=== PATIENT | male | born 1945 | race Caucasian/White ===

== ENCOUNTER 2016-09-27 07:26 | Day surgery (SDC) | payer MEDICARE, BC ==
[~2016-09-27 07:26] MED LIST: Dextrose 5%-0.45% NaCl 1,000 ML IV SCH; Midazolam 1 MG/ML 2 ML SDV ONE; Sodium Chloride 0.9% 10 ML Syringe FLUSH PRN; fentaNYL 100 MCG/2 ML SDV ONE
[2016-09-27] MEDS ORDERED: fentaNYL 100 MCG/2 ML SDV IV ONE ×3 (08:11→17:02)
[2016-09-27] MEDS ORDERED: Midazolam 1 MG/ML 2 ML SDV IV ONE ×5 (08:12→17:02)
[2016-09-27 09:57] VITALS: BP 117/64
--- NOTE | 2016-09-27 09:59 | OR ---
DATE: 09/27/2016 PROCEDURE: Total colonoscopy, NBI, and cold snare polypectomy. INSTRUMENT USED: CF-H180AL Olympus video colonoscope. PREMEDICATIONS: Fentanyl 100 mcg intravenous, Versed 3 mg intravenous. Nasal O2 cannula. The procedure was done under pulse oximetry, BP recording, and computer systems auditor. INDICATION: Screening colonoscopic examination is done for detection of any polypoid lesions and removal, endoscopic hemostasis therapy if needed, had previous inadequate study due to the presence of a large amount of fecal material. DESCRIPTION OF PROCEDURE: Initial rectal exam showed external hemorrhoidal tags. Rigid anoscopy showed small internal hemorrhoids without bleeding from them. The colonoscope was passed with ease up to the ileocecal area, photographs were taken of the normal appearing cecum, identified by landmarks of appendiceal orifice and double-bulged ileocecal folds. No bleeding was noted from any of the visualized areas at the commencement of the examination. The colon was found to be tortuous and redundant. There was quite a bit of liquid fecal material that had to be aspirated clear. No stricture. No vascular ectasia. No large isolated ulcerations seen. No evidence of diffuse inflammatory bowel disease in the form of friability, contact bleeding, or ulcerations. In the proximal ascending colon, less than 1 cm sized superficial sessile polyp was noted, NBI views obtained, cold snare polypectomy was done, the tissue was retrieved and sent for histopathology. Probing the proximal sides of folds and flexures, using adequate distention and clearing up the stool material, withdrawal of the scope was made, cecum to rectum time over 6 minutes. No bleeding was noted from any of the visualized areas at the completion of examination. IMPRESSION: 1. External and internal hemorrhoids. 2. Ascending colon polyp. The patient tolerated the procedure well. [facility] /[id number]
== END 2016-09-27 10:15 | disposition home or self-care (01) ==
LOC: DL.ENDO 07:26
PROVIDERS: ATTEND Internal Medicine Gastroenterology
DX: Z12.11 Encounter for screening for malignant neoplasm of colon (principal); K31.89 Other diseases of stomach and duodenum; K64.4 Residual hemorrhoidal skin tags; K64.8 Other hemorrhoids; Z88.8 Allergy status to other drugs, medicaments and biological substances; I10 Essential (primary) hypertension; E11.9 Type 2 diabetes mellitus without complications; Z98.890 Other specified postprocedural states; Z79.52 Long term (current) use of systemic steroids; Z87.891 Personal history of nicotine dependence
CPT/HCPCS: 45385; J2250; J3010; J7042; 88305

== ENCOUNTER 2022-01-20 06:30 | Day surgery (SDC) | payer MEDICARE, BC ==
[~2022-01-20 06:30] MED LIST changes: -Dextrose 5%-0.45% NaCl 1,000 ML IV SCH; +Sodium Chloride 0.9% 10 ML Syringe FLUSH SCH
[2022-01-20] MEDS ORDERED: fentaNYL 100 MCG/2 ML SDV IV ONE (06:31)
[2022-01-20] MEDS ORDERED: Midazolam 1 MG/ML 2 ML SDV IV ONE (06:31)
[2022-01-20] MEDS: Dextrose 5%-0.45% NaCl 1,000 ML IV SCH (07:11)
[2022-01-20] MEDS: fentaNYL 100 MCG/2 ML SDV IV ONE ×2 (08:02→08:04)
[2022-01-20] MEDS: Midazolam 1 MG/ML 2 ML SDV IV ONE ×4 (08:05→08:12)
[2022-01-20 10:19] VITALS: BP 147/75; PULSE 59
== END 2022-01-20 10:20 | disposition home or self-care (01) ==
LOC: DL.ENDO 06:30
PROVIDERS: ATTEND Internal Medicine Gastroenterology
DX: Z12.11 Encounter for screening for malignant neoplasm of colon (principal); K57.30 Diverticulosis of large intestine without perforation or abscess without bleeding; K64.4 Residual hemorrhoidal skin tags; E66.09 Other obesity due to excess calories; N28.1 Cyst of kidney, acquired; E11.9 Type 2 diabetes mellitus without complications; I10 Essential (primary) hypertension; C92.10 Chronic myeloid leukemia, BCR/ABL-positive, not having achieved remission; Z01.812 Encounter for preprocedural laboratory examination; Z98.890 Other specified postprocedural states; Z88.8 Allergy status to other drugs, medicaments and biological substances; Z20.822 Contact with and (suspected) exposure to COVID-19
CPT/HCPCS: G0121; J2250; J3010; J7042; U0002

== ENCOUNTER 2022-06-13 23:53 | Emergency (ER) | payer MEDICARE, BC ==
[2022-06-13 22:59] VITALS: BP 173/61; PULSE 77
[2022-06-14 00:02] LABS: ANION GAP 9.1 mEq/L (7-13)
[2022-06-14 00:10] LABS: PTT,PARTIAL THROMBOPLSTIN TIME 27.4 SEC (22.0-34.0)
[2022-06-14] MEDS ORDERED: Ketorolac 30 MG/ML SDV IVPUSH ONE (01:09)
== END 2022-06-14 01:44 | disposition home or self-care (01) ==
LOC: DL.ED 23:53
DX: G89.18 Other acute postprocedural pain (principal); M25.561 Pain in right knee; M25.461 Effusion, right knee; C92.10 Chronic myeloid leukemia, BCR/ABL-positive, not having achieved remission; I13.0 Hypertensive heart and chronic kidney disease with heart failure and stage 1 through stage 4 chronic kidney disease, or unspecified chronic kidney disease; I50.9 Heart failure, unspecified; N18.9 Chronic kidney disease, unspecified; D63.1 Anemia in chronic kidney disease; E66.9 Obesity, unspecified; Z68.30 Body mass index [BMI] 30.0-30.9, adult; Z88.6 Allergy status to analgesic agent; Z79.899 Other long term (current) drug therapy; Z86.16 Personal history of COVID-19
CPT/HCPCS: 36415; 73562-RT; 80053; 83605; 85025; 85610; 85651; 85730; 86140; 87040; 96374; 99284-25; 99285; J1885

== ENCOUNTER 2024-04-16 14:36 | Emergency (ER) | payer MEDICARE, BC ==
[2024-04-16 14:46] VITALS: BP 165/74; PULSE 68
[2024-04-16 16:04] LABS: A/G RATIO 1.2; ALBUMIN 3.4 g/dL (3.4-5.0); ANION GAP 13.3 mEq/L (7-13); BILIRUBIN TOTAL 0.7 mg/dL (0.2-1.0); BUN/CREATININE RATIO 13.5 (No establ ref range); CALCIUM 8.9 mg/dL (8.5-10.1); CREATININE 1.78 mg/dL (0.70-1.30); EST CRCL DRUG DOSING (CG) 31.98 mL/min; POTASSIUM,K 4.3 mmol/L (3.5-5.1); PROTEIN TOTAL,TP 6.2 g/dL (6.4-8.2)
== END 2024-04-16 16:30 | disposition home or self-care (01) ==
LOC: DL.ED 14:36
DX: M54.42 Lumbago with sciatica, left side (principal); M54.16 Radiculopathy, lumbar region; I25.10 Atherosclerotic heart disease of native coronary artery without angina pectoris; I10 Essential (primary) hypertension; M19.90 Unspecified osteoarthritis, unspecified site; E11.9 Type 2 diabetes mellitus without complications; E66.9 Obesity, unspecified; Z95.5 Presence of coronary angioplasty implant and graft; Z87.891 Personal history of nicotine dependence; Z88.8 Allergy status to other drugs, medicaments and biological substances; Z79.82 Long term (current) use of aspirin; Z79.899 Other long term (current) drug therapy; Z68.37 Body mass index [BMI] 37.0-37.9, adult
CPT/HCPCS: 36415; 72100; 80053; 99283

== ENCOUNTER 2024-05-17 07:58 | Emergency (ER) | payer MEDICARE, BC ==
[2024-05-17 09:20] LABS: BILIRUBIN,URINE NEGATIVE (NEGATIVE); COLOR,URINE YELLOW (YELLOW); GLUCOSE,URINE NEGATIVE (NEGATIVE); KETONES,URINE NEGATIVE (NEGATIVE); LEUKOCYTE ESTERASE,URINE NEGATIVE (NEGATIVE); NITRITE,URINE NEGATIVE (NEGATIVE); OCCULT BLOOD,URINE NEGATIVE (NEGATIVE); PH,URINE 5.5 (5.0-9.0); PROTEIN,URINE 100 (NEGATIVE); UROBILINOGEN,URINE 0.2 mg/dL (0.2-1.0)
[2024-05-17 09:21] VITALS: BP 123/65; PULSE 80
[2024-05-17 09:23] LABS: APPEARANCE,URINE SLIGHTLY CLOUDY (CLEAR)
[2024-05-17 09:43] LABS: EPITHELIAL CELLS,URINE RARE /HPF (NOT SEEN); WBC,URINE 0-5 /HPF (0-5/HPF)
[2024-05-17 09:44] LABS: AMORPHOUS SEDIMENT,URINE MODERATE /HPF (NOT SEEN); BACTERIA,URINE FEW /HPF (0-FEW/HPF); HYALINE CASTS,URINE FEW; MUCUS,URINE FEW /LPF (NOT SEEN)
== END 2024-05-17 10:13 | disposition home or self-care (01) ==
LOC: DL.ED 07:58
DX: R33.9 Retention of urine, unspecified (principal); I25.10 Atherosclerotic heart disease of native coronary artery without angina pectoris; I10 Essential (primary) hypertension; M19.90 Unspecified osteoarthritis, unspecified site; E11.9 Type 2 diabetes mellitus without complications; E66.9 Obesity, unspecified; Z96.659 Presence of unspecified artificial knee joint; Z95.5 Presence of coronary angioplasty implant and graft; Z88.8 Allergy status to other drugs, medicaments and biological substances; Z79.82 Long term (current) use of aspirin; Z79.899 Other long term (current) drug therapy; Z68.29 Body mass index [BMI] 29.0-29.9, adult
CPT/HCPCS: 51701; 81001; 99284; C1758

== ENCOUNTER 2024-05-17 16:23 | Emergency (ER) | payer MEDICARE, BC ==
[2024-05-17 17:04] VITALS: BP 108/67; PULSE 70
[2024-05-17] MEDS: Lidocaine 2% Jelly 10 ML Urojet MUCMEM ONE ×2 (17:15→18:38)
== END 2024-05-17 18:47 | disposition home or self-care (01) ==
LOC: DL.ED 16:23
DX: Z96.0 Presence of urogenital implants (principal); I25.10 Atherosclerotic heart disease of native coronary artery without angina pectoris; I10 Essential (primary) hypertension; M19.90 Unspecified osteoarthritis, unspecified site; E11.9 Type 2 diabetes mellitus without complications; E66.9 Obesity, unspecified; Z96.651 Presence of right artificial knee joint; Z95.5 Presence of coronary angioplasty implant and graft; Z88.8 Allergy status to other drugs, medicaments and biological substances; Z79.82 Long term (current) use of aspirin; Z79.899 Other long term (current) drug therapy
CPT/HCPCS: 99283; A9270

== ENCOUNTER 2024-05-17 21:03 | Emergency (ER) | payer MEDICARE, BC ==
[2024-05-17 22:12] VITALS: BP 108/90; PULSE 75
== END 2024-05-17 22:46 | disposition home or self-care (01) ==
LOC: DL.ED 21:03
DX: T83.098A Other mechanical complication of other urinary catheter, initial encounter (principal); I10 Essential (primary) hypertension; I25.10 Atherosclerotic heart disease of native coronary artery without angina pectoris; M19.90 Unspecified osteoarthritis, unspecified site; E11.9 Type 2 diabetes mellitus without complications; E66.9 Obesity, unspecified; Z96.651 Presence of right artificial knee joint; Z88.8 Allergy status to other drugs, medicaments and biological substances; Z79.82 Long term (current) use of aspirin; Z79.899 Other long term (current) drug therapy
CPT/HCPCS: 99283

== ENCOUNTER 2024-05-21 16:55 | Inpatient (IN) | payer MEDICARE, BC ==
[2024-05-21 18:53] LABS: BASOPHILS PERCENT AUTO 0.3 % (0.0-1.0); EOSINOPHILS PERCENT AUTO 1.6 % (1.0-3.0); HEMATOCRIT 28.9 % (40.0-54.0); HEMOGLOBIN 9.5 g/dL (14.0-18.0); MEAN CORPUSCULAR HEMOGLOBIN 33.3 pg (27.0-34.0); MEAN CORPUSCULAR HGB CONC 32.9 g/dL (33.0-35.0); MEAN CORPUSCULAR VOLUME 101.4 fL (80-100); MONOCYTES PERCENT AUTO 11.4 % (2-8); NEUTROPHILS PERCENT AUTO 76.7 % (42.2-75.2); PLATELET COUNT,PLT 247 10^3/uL (150-450); RED BLOOD CELL COUNT 2.85 10^6/uL (4.6-6.2); WHITE BLOOD CELL COUNT,WBC 6.8 10^3/uL (5.0-10.0)
[2024-05-21 18:56] LABS: APPEARANCE,URINE SLIGHTLY CLOUDY (CLEAR); BILIRUBIN,URINE NEGATIVE (NEGATIVE); COLOR,URINE YELLOW (YELLOW); GLUCOSE,URINE NEGATIVE (NEGATIVE); KETONES,URINE NEGATIVE (NEGATIVE); LEUKOCYTE ESTERASE,URINE TRACE (NEGATIVE); NITRITE,URINE NEGATIVE (NEGATIVE); OCCULT BLOOD,URINE LARGE (NEGATIVE); PH,URINE 6.5 (5.0-9.0); PROTEIN,URINE >=300 (NEGATIVE)
[2024-05-21 19:06] LABS: BACTERIA,URINE FEW /HPF (0-FEW/HPF); EPITHELIAL CELLS,URINE RARE /HPF (NOT SEEN); GRANULAR CASTS,URINE RARE; MUCUS,URINE FEW /LPF (NOT SEEN); RBC,URINE SEMI-PACKED /HPF (0-5)
[2024-05-21 19:13] LABS: A/G RATIO 0.9; ALANINE AMINOTRANSFERASE,ALT 17 U/L (16-63); ALBUMIN 3.7 g/dL (3.4-5.0); ALKALINE PHOSPHATASE 70 U/L (46-116); ANION GAP 15.2 mEq/L (7-13); ASPARTATE AMNIOTRANSFERASE,AST 19 U/L (15-37); BILIRUBIN TOTAL 1.4 mg/dL (0.2-1.0); BLOOD UREA NITROGEN,BUN 46 mg/dL (7-18); BUN/CREATININE RATIO 26.9 (No establ ref range); C-REACTIVE PROTEIN 1.89 ng/dL (<=0.50); CALCIUM 9.8 mg/dL (8.5-10.1); CARBON DIOXIDE,CO2 27 mmol/L (21-32); CHLORIDE,CL 104 mmol/L (98-107); CREATININE 1.71 mg/dL (0.70-1.30); GLUCOSE RANDOM 117 mg/dL (70-99); POTASSIUM,K 4.2 mmol/L (3.5-5.1); PROTEIN TOTAL,TP 7.7 g/dL (6.4-8.2); SODIUM,NA 142 mmol/L (136-145)
[2024-05-21 19:16] LABS: ESTIMATED GFR 40 mL/min (>=60); LACTIC ACID 0.8 mmol/L (0.4-2.0)
[2024-05-21] MEDS: Sodium Chloride 0.9% 1,000 ML IV ONE (19:39)
[2024-05-21] MEDS: cefTRIAXone 2 GM Vial IVPUSH ONE (19:41)
[2024-05-21] MEDS: Sodium Chloride 0.9% 10 ML Syringe FLUSH PRN (21:02)
[2024-05-21] MEDS: Acetaminophen/HYDROcodone 325-5 MG Tab PO PRN (21:02)
[2024-05-21] MEDS: Ketorolac 30 MG/ML SDV IVPUSH PRN (21:02)
[2024-05-22] MEDS ORDERED: Cyanocobalamin (Vitamin B12) 1,000 MCG/ML SDV IM SCH (02:30)
[2024-05-22] MEDS ORDERED: Acetaminophen 325 MG Tab PO PRN (02:47)
[2024-05-22] MEDS ORDERED: Albuterol/Ipratropium 3.0-0.5 MG/3 ML Neb Soln NEB PRN (02:47)
[2024-05-22] MEDS ORDERED: Ondansetron 4 MG/2 ML SDV IVPUSH PRN (02:47)
[2024-05-22] MEDS ORDERED: Docusate Sodium 100 MG Cap PO PRN (02:47)
[2024-05-22] MEDS: Sodium Chloride 0.9% 1,000 ML IV SCH (04:35)
[2024-05-22] MEDS: Heparin Sodium 5,000 Units/ML Vial SUBCUT SCH (05:20)
[2024-05-22 06:42] LABS: BASOPHILS PERCENT AUTO 0.2 % (0.0-1.0); EOSINOPHILS PERCENT AUTO 1.7 % (1.0-3.0); HEMATOCRIT 29.3 % (40.0-54.0); HEMOGLOBIN 9.5 g/dL (14.0-18.0); LYMPHOCYTES PERCENT AUTO 14.3 % (20.5-50.1); MEAN CORPUSCULAR HGB CONC 32.4 g/dL (33.0-35.0); MEAN CORPUSCULAR VOLUME 101.7 fL (80-100); MONOCYTES PERCENT AUTO 13.6 % (2-8); NEUTROPHILS PERCENT AUTO 70.2 % (42.2-75.2); PLATELET COUNT,PLT 224 10^3/uL (150-450); RED BLOOD CELL COUNT 2.88 10^6/uL (4.6-6.2); WHITE BLOOD CELL COUNT,WBC 5.7 10^3/uL (5.0-10.0)
[2024-05-22 06:58] LABS: CALCIUM 9.4 mg/dL (8.5-10.1); CREATININE 1.41 mg/dL (0.70-1.30); EST CRCL DRUG DOSING (CG) 41.77 mL/min
[2024-05-22] MEDS: Ezetimibe 10 MG Tab PO SCH (08:49)
[2024-05-22] MEDS: Tamsulosin 0.4 MG Cap.ER PO SCH (08:49)
[2024-05-22] MEDS: Oxybutynin 5 MG Tab PO SCH (08:49)
[2024-05-22] MEDS: cefTRIAXone 1 GM Vial IVPUSH SCH (08:49)
[2024-05-22] MEDS: Lisinopril 20 MG Tab PO SCH (08:50)
[2024-05-22] MEDS: Aspirin 81 MG Tab.EC PO SCH (08:59)
[2024-05-22] MEDS: Clopidogrel 75 MG Tab PO SCH (08:59)
[2024-05-22] MEDS: Take Home: Ciprofloxacin HCl 500 MG, 6 Tab Pack PO ONE (11:01)
[2024-05-22 11:10] VITALS: BP 154/80; PULSE 61
[2024-05-22] MEDS: Non-Formulary Medication 1 Each (Vitamin B Complex [B Complex] 1 EACH Tablet) PO SCH (11:46)
[2024-05-22] MEDS: Folic Acid 1 MG Tab PO SCH (11:46)
== END 2024-05-22 11:15 | disposition home or self-care (01) | DRG 699 ==
LOC: DL.ED 16:55 → DL.MS 19:35
PROVIDERS: ADMIT Internal Medicine; ATTEND Internal Medicine
DX: T83.511A Infection and inflammatory reaction due to indwelling urethral catheter, initial encounter (principal); N30.01 Acute cystitis with hematuria; N40.0 Benign prostatic hyperplasia without lower urinary tract symptoms; H54.7 Unspecified visual loss; I25.10 Atherosclerotic heart disease of native coronary artery without angina pectoris; I10 Essential (primary) hypertension; Z87.891 Personal history of nicotine dependence; E78.00 Pure hypercholesterolemia, unspecified; M54.9 Dorsalgia, unspecified; G89.29 Other chronic pain; Z96.651 Presence of right artificial knee joint; Z68.29 Body mass index [BMI] 29.0-29.9, adult; M16.12 Unilateral primary osteoarthritis, left hip; E11.9 Type 2 diabetes mellitus without complications; E66.9 Obesity, unspecified; Z88.8 Allergy status to other drugs, medicaments and biological substances; Z79.82 Long term (current) use of aspirin; Z79.02 Long term (current) use of antithrombotics/antiplatelets; Z79.899 Other long term (current) drug therapy; Z95.5 Presence of coronary angioplasty implant and graft; Z87.19 Personal history of other diseases of the digestive system; Z68.30 Body mass index [BMI] 30.0-30.9, adult; Y84.6 Urinary catheterization as the cause of abnormal reaction of the patient, or of later complication, without mention of misadventure at the time of the procedure
CPT/HCPCS: 36415; 80048; 80053; 81001; 82947; 83605; 85025; 86140; 87086; 99233; 99239; 99284; 99285; A9270-GY; J0696; J1885; J7030

== ENCOUNTER 2024-06-15 14:20 | Emergency (ER) | payer MEDICARE, BC | END 2024-06-15 14:40 | LOC: DL.ED 14:20 | DX: Z53.21 Procedure and treatment not carried out due to patient leaving prior to being seen by health care provider (principal) ==

== ENCOUNTER 2024-06-17 06:56 | Emergency (ER) | payer MEDICARE, BC | END 2024-06-17 07:09 | disposition left against medical advice (07) | LOC: DL.ED 06:56 | DX: Z53.21 Procedure and treatment not carried out due to patient leaving prior to being seen by health care provider (principal) ==